=== PATIENT | female | born 1995 | race Two or more races ===

== ENCOUNTER 2020-10-26 08:50 | Emergency (ER) | payer OTHER ==
[2020-10-26 08:59] VITALS: BP 129/81
--- NOTE | 2020-10-26 09:08 | ED Physician Documentation ---
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 She thinks the exposure was low risk not only for the mechanism itself but for the patient. 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 - Present Medications Home Medications: Ambulatory Orders Medication Instructions Recorded Confirmed No Known Home Medications 10/26/20 10/26/20 - Allergies Allergies/Adverse Reactions: Allergies Allergy/AdvReac Type Severity Reaction Status Date / Time No Known Drug Allergies Allergy Verified 10/26/20 08:59 - Social History Does the pt smoke?: No Smoking Status: Never smoker PD ED PE NORMAL - Vitals Vital signs reviewed: Yes (hypertensive mild ) - General General: Alert and oriented X 3, No acute distress, Well developed/nourished - HEENT HEENT: Atraumatic, PERRL, EOMI - Respiratory Respiratory: No respiratory distress - Derm Derm: Normal color, Warm and dry, No rash - Extremities Extremities: No deformity, No tenderness to palpate, Normal ROM s pain, No edema, Other (over the palmar surface of the left hand no specific injury is visible. 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 A low risk needle stick. An employee exposure panel is obtained. Departure - Departure Disposition: 01 Home, Self Care Clinical Impression: Accidental hypodermic needlestick injury Instructions: ED Body Fluid Exp HC Worker Follow-Up: [facility] [Provider Group] Discharge Date/Time: 10/26/20 09:36
[2020-10-27 12:21] LABS: HEPATITIS C ANTIBODY NON-REACTIVE (NON-REACTIVE)
[2020-10-27 13:11] LABS: HIV AG/AB 4TH GEN NON-REACTIVE (NON-REACTIVE)
== END 2020-10-26 09:36 | disposition home or self-care (01) ==
LOC: ED 08:50
DX: Z77.21 Contact with and (suspected) exposure to potentially hazardous body fluids (principal); W46.0XXA Contact with hypodermic needle, initial encounter
CPT/HCPCS: 36415; 86317; 86803; 87389; 99282; 99283

== ENCOUNTER 2024-04-21 22:53 | Outpatient (CLI) | payer BC ==
[2024-04-21 23:02] LABS: BASOPHILS % (AUTO) 0.5 %; EOSINOPHILS # (AUTO) 0.4 10^3/uL (0.0-0.7); EOSINOPHILS % (AUTO) 4.6 %; HCT - HEMATOCRIT 44.6 % (37.0-47.0); HGB - HEMOGLOBIN 14.5 g/dL (12.0-16.0); LYMPHOCYTES # (AUTO) 2.1 10^3/uL (1.5-3.5); LYMPHOCYTES % (AUTO) 27.1 %; MEAN CORPUSCULAR HEMOGLOBIN 29.2 pg (27.0-31.0); MEAN CORPUSCULAR HGB CONC 32.5 g/dL (32.0-36.0); MEAN CORPUSCULAR VOLUME 89.9 fL (81.0-99.0); MEAN PLATELET VOLUME 9.9 fL (7.9-10.8); MONOCYTES # (AUTO) 0.4 10^3/uL (0.0-1.0); MONOCYTES % (AUTO) 5.5 %; NEUTROPHILS # (AUTO) 4.8 10^3/uL (1.5-6.6); PLT - PLATELET COUNT 202 10^3/uL (130-450); RED BLOOD COUNT 4.96 10^6/uL (4.20-5.40); RED CELL DISTRIBUTION WIDTH 12.8 % (12.0-15.0); WHITE BLOOD COUNT 7.8 x10^3/uL (4.8-10.8)
[2024-04-21 23:19] LABS: ALBUMIN 4.7 g/dL (3.2-5.5); ALBUMIN/GLOBULIN RATIO 1.3 (1.0-2.2); ALKALINE PHOSPHATASE 70 IU/L (42-121); ALT ALANINE AMINOTRANSFERASE 45 IU/L (10-60); AST ASPARTATE AMINOTRANSFERASE 23 IU/L (10-42); BILIRUBIN,TOTAL 0.4 mg/dL (0.2-1.0); BUN - BLOOD UREA NITROGEN 16 mg/dL (6-20); CALCIUM 9.6 mg/dL (8.5-10.3); CARBON DIOXIDE - CO2 27 mmol/L (21-32); CHLORIDE 103 mmol/L (101-111); CHOLESTEROL 142 mg/dL; CREATININE 0.8 mg/dL (0.6-1.3); GFR - MDRD 84 (>89); GLUCOSE 102 mg/dL (74-104); HDL CHOLESTEROL 34 mg/dL; POTASSIUM 3.9 mmol/L (3.5-4.5); SODIUM 135 mmol/L (135-145); TOTAL PROTEIN 8.4 g/dL (6.4-8.9); TRIGLYCERIDES 94 mg/dL; VLDL CHOLESTEROL 19 mg/dL
[2024-04-21 23:20] LABS: CHOL/HDL RATIO 4.2 (<4.4); LDL CHOLESTEROL,CALCULATED 89 mg/dL; LDL/HDL RATIO 2.6 (<4.4)
[2024-04-21 23:31] LABS: THYROID STIMULATING HORMONE 3.79 uIU/mL (0.34-5.60)
== END 2024-04-21 22:54 | disposition home or self-care (01) ==
LOC: LAB 22:53
PROVIDERS: ATTEND Physician Assistant
DX: Z13.9 Encounter for screening, unspecified (principal)
CPT/HCPCS: 36415; 80053; 80061; 83721; 84443; 85025